=== PATIENT | male | born 1970 | race Caucasian/White ===

== ENCOUNTER 2021-02-11 20:20 | Emergency (ER) | payer OTHER ==
[~2021-02-11] VITALS: Ht 182.8 cm; Wt 140.6 kg
[~2021-02-11 20:20] MED LIST: MOTRIN800 MG PO
== END 2021-02-12 03:40 | disposition home or self-care (01) ==
LOC: ED 20:20
DX: S86.911A Strain of unspecified muscle(s) and tendon(s) at lower leg level, right leg, initial encounter (principal); Z91.040 Latex allergy status; W18.39XA Other fall on same level, initial encounter; Y93.89 Activity, other specified; Y92.89 Other specified places as the place of occurrence of the external cause; Y99.8 Other external cause status

== ENCOUNTER 2022-01-12 05:41 | Emergency (ER) | payer OTHER ==
[~2022-01-12] VITALS: Ht 182.8 cm; Wt 127.0 kg
[2022-01-12] MEDS ORDERED: NAPROXEN250 MG PO (06:10)
== END 2022-01-12 06:21 | disposition home or self-care (01) ==
LOC: ED 05:41
DX: S90.211A Contusion of right great toe with damage to nail, initial encounter (principal); W20.8XXA Other cause of strike by thrown, projected or falling object, initial encounter; Y93.89 Activity, other specified; Y92.89 Other specified places as the place of occurrence of the external cause; Y99.8 Other external cause status

== ENCOUNTER 2022-02-09 17:01 | Emergency (ER) | payer OTHER, MEDICAID ==
[~2022-02-09] VITALS: Ht 182.8 cm; Wt 130.2 kg
[~2022-02-09 17:01] MED LIST changes: +NAPROXEN250 MG PO
[2022-02-09] MEDS ORDERED: SEPTDS PO (20:47)
== END 2022-02-09 21:18 | disposition home or self-care (01) ==
LOC: ED 17:01
DX: L03.116 Cellulitis of left lower limb (principal)

== ENCOUNTER → 2022-02-10 | Outpatient (CLI) | payer OTHER, MEDICAID ==
[~2022-02-10] MED LIST changes: +SEPTDS PO
== END | disposition home or self-care (01) ==
LOC: US 14:30
PROVIDERS: ATTEND Internal Medicine
DX: M79.605 Pain in left leg (principal)